=== PATIENT | female | born 1995 | race Caucasian/White ===

== ENCOUNTER 2019-06-15 18:35 | Emergency (ER) | payer BC ==
[2019-06-15] MEDS ORDERED: ONDANSETRON HCL IV 4 MG/2 ML VIAL IVP ONE (19:06)
[2019-06-15] MEDS ORDERED: 0.9 % SODIUM CHLORIDE 1000ML 1,000 ML IV SCH ×2 (19:15→20:15)
--- NOTE | 2019-06-15 19:16 | Emergency Department Record ---
History of Present Illness - General Chief complaint: Vomiting Stated complaint: VOMITTING, Time Seen by Provider: 06/15/19 19:04 Source: Patient Mode of Arrival: Ambulatory Limitations: No limitations - History of Present Illness Initial comments: 23 yo at 34 weeks gestation presents to ED for evaluation of nausea, vomiting symptoms that began 3 hours ago. Patient denies abdominal pain symptoms on examination. Patient denies fevers, chills, or productive cough symptoms. Patient came to the ED as she was concerned about possible dehydration symptoms. MD complaint: Nausea, Vomiting Onset/Timin -: Hour(s) Associated Abdominal Pain: No Consistency: Intermittent Improves with: None Worsens with: None Context: Sick contacts Associated Symptoms: Nausea/vomiting - Related Data Home Medications Medication Instructions Recorded Confirmed Last Taken No122/Iron/Folic Acid 1 each PO DAILY 06/15/19 06/15/19 06/15/19 [ Multi Tablet] Previous Rx's Medication Instructions Recorded Ondansetron [Zofran Odt] 4 mg PO Q8H PRN #15 tab.rapdis 06/15/19 Allergies Allergy/AdvReac Type Severity Reaction Status Date / Time Latex, Natural Rubber Allergy RASH Verified 06/15/19 19:06 Travel Screening - Travel/Exposure Within Last 30 Days Have you traveled within the last 30 days?: No - Travel/Exposure Within Last Year Have you traveled outside the [place] in the last year?: No - Additonal Travel Details Have you been exposed to anyone with a communicable illness?: No - Travel Symptoms Symptom Screening: None Review of Systems Constitutional: Denies: Chills, Fever, Malaise, Night sweats Eyes: Denies: Eye discharge, Eye pain ENT: Denies: Congestion, Ear pain, Epistaxis Respiratory: Denies: Cough, Dyspnea Cardiovascular: Denies: Chest pain, Dyspnea on exertion Endocrine: Denies: Fatigue, Heat or cold intolerance Gastrointestinal: Reports: Nausea, Vomiting. Denies: Abdominal pain Genitourinary: Denies: Incontinence, Retention Musculoskeletal: Denies: Arthralgia, Back pain Skin: Denies: Bruising, Change in color Neurological: Denies: Abnormal gait, Confusion, Headache Psychiatric: Denies: Anxiety Hematological/Lymphatic: Denies: Anemia, Blood Clots Past Medical History - SOCIAL HISTORY Smoking Status: Never smoker Alcohol Use: None Drug Use: None - RESPIRATORY Hx Respiratory Disorders: No - CARDIOVASCULAR Hx Cardio Disorders: No - NEURO Hx Neuro Disorders: No - GI Hx GI Disorders: No - Hx Genitourinary Disorders: No - ENDOCRINE Hx Endocrine Disorders: No - MUSCULOSKELETAL Hx Musculoskeletal Disorders: No - PSYCH Hx Psych Problems: No - HEMATOLOGY/ONCOLOGY Hx Hematology/Oncology Disorders: No Family Medical History Any Significant Family History?: No Physical Exam - General General Appearance: Alert, Oriented x3, Cooperative, Mild distress Limitations: No limitations - Head Head exam: Atraumatic, Normocephalic, Normal inspection Head exam detail: negative: Abrasion, Contusion, López's sign, General tenderness, Hematoma, Laceration - Eye Eye exam: Normal appearance. negative: Conjunctival injection, Periorbital swelling, Periorbital tenderness, Scleral icterus - ENT Ear exam: negative: Auricular hematoma, Auricular trauma Nasal Exam: negative: Active bleeding, Discharge, Dried blood, Foreign body Mouth exam: negative: Drooling, Laceration, Muffled voice, Tongue elevation - Neck Neck exam: Normal inspection. negative: Meningismus, Tenderness - Respiratory Respiratory exam: Normal lung sounds bilaterally. negative: Respiratory distress, Rhonchi, Stridor, Wheezes - Cardiovascular Cardiovascular Exam: Regular rate, Normal rhythm, Normal heart sounds - GI/Abdominal GI/Abdominal exam: Soft, Other (Gravid uterus, nontender abdomen on examination.). negative: Rebound, Rigid, Tenderness - Rectal Rectal exam: Deferred - exam: Deferred - Extremities Extremities exam: Normal inspection. negative: Pedal edema, Tenderness - Back Back exam: Denies: CVA tenderness (R), CVA tenderness (L) - Neurological Neurological exam: Alert, Normal gait, Oriented X3 - Psychiatric Psychiatric exam: Normal affect, Normal mood - Skin Skin exam: Normal color. negative: Abrasion Type of lesion: negative: abrasion Course Vital Signs 06/15/19 19:02 Temperature 98.4 F Pulse Rate [ 107 H Pulse Ox Probe] Respiratory 20 Rate Blood Pressure 116/73 [Left Arm] Pulse Ox 98 - Reevaluation(s) Reevaluation #1: 06/15/19 19:52 Laboratory studies were reviewed and appear grossly unremarkable for an acute process. Influenza is negative as well. Reevaluation #2: 06/15/19 20:08 Patient was reassessed, reports improvement in her nausea symptoms. Reevaluation #3: 01/01/20 20:14 Patient was reassessed and reports that she is feeling MUCH improved. Will infuse 2nd Liter NS and reassess. Reevaluation #4: 06/15/19 22:03 2nd Liter has nearly completed infusion, patient reports that she is feeling back to her baseline and appears stable for discharge at this time. Medical Decision Making - Lab Data Result diagrams: 06/15/19 19:20 06/15/19 19:20 Disposition Disposition: Discharge Clinical Impression: Nausea and vomiting during Disposition: Home, Self-Care Condition: (2) Stable Instructions: Acute Nausea and Vomiting (ED) Additional Instructions: Return to ED if your symptoms worsen or if you have any concerns. Zofran as directed. Follow-up with your [facility] in 1-3 days as directed. Prescriptions: Ondansetron [Zofran Odt] 4 mg PO Q8H PRN #15 tab.rapdis PRN Reason: Nausea/Vomiting Forms: Patient Portal Access Time of Disposition: 22:03 Quality - Quality Measures Quality Measures: N/A - Blood Pressure Screening Does Patient Have Any of the Following: No Blood Pressure Classification: Normal BP Reading Systolic Measurement: 116 Diastolic Measurement: 73 Screening for High Blood Pressure: < Normal BP, F/U Not Required > [[id number]]
[2019-06-15 19:29] LABS: ABSOLUTE NEUTROPHIL COUNT 9.04; HEMATOCRIT 36.9 % (35.0-47.0); HEMOGLOBIN 11.8 gm/dl (11.6-16.0); MEAN CELL VOLUME 88.3 fl (81-97); MEAN CORPUSCULAR HEMOGLOBIN 28.2 pg (27-33); MEAN PLATELET VOLUME 10.1 fl (7.4-10.4); PLATELET COUNT 229 K/uL (130-400); RED BLOOD COUNT 4.18 M/uL (3.80-5.40); RED CELL DISTRIBUTION WIDTH 14.5 % (11.5-14.5); WHITE BLOOD COUNT W/O DIFF 10.4 K/uL (4.2-12.2)
[2019-06-15 19:31] LABS: EOS % 0.2 % (0-6); GRAN % 87.1 % (47-80); LYMPH % 5.8 % (16-45); MONO % 6.9 % (0-9)
[2019-06-15 19:42] LABS: BLOOD UREA NITROGEN 8 mg/dL (6-20); CREATININE 0.5 mg/dL (0.5-0.9); EST GLOMERULAR FILTRATION RATE > 60 mL/min
[2019-06-15 19:43] LABS: TOTAL PROTEIN 6.7 g/dL (6.6-8.7)
[2019-06-15 19:44] LABS: GLUCOSE,RANDOM 116 mg/dL (74-109)
[2019-06-15 19:47] LABS: ALB/GLOB RATIO 1.2 (1.1-1.8); ALBUMIN 3.7 g/dL (4.0-5.0); ALKALINE PHOSPHATASE 129 U/L (35-104); ALT/SGPT 9 U/L (<33); AST/SGOT 14 U/L (10.0-35.0)
[2019-06-15 19:54] LABS: INFLUENZA A NEGATIVE (NEGATIVE); INFLUENZA B NEGATIVE (NEGATIVE)
== END 2019-06-15 22:10 | disposition home or self-care (01) ==
LOC: ER 18:35
DX: O21.1 Hyperemesis gravidarum with metabolic disturbance (principal); Z3A.34 34 weeks gestation of pregnancy
CPT/HCPCS: 80053; 85025; 87400; 96374; 99284; J2405; J7030